=== PATIENT | male | born 1990 | race Caucasian/White ===

== ENCOUNTER 2018-06-01 12:09 | Emergency (ER) | payer OTHER ==
[~2018-06-01 12:09] MED LIST: ONDA4TAB97 PO; OXYC-865 PO
--- NOTE | 2018-06-01 12:13 | ER Report ---
History and Physical Time Seen By MD: 12:13 HPI/ROS CHIEF COMPLAINT: Left shoulder pain HISTORY OF PRESENT ILLNESS: 27-year-old male patient presents to emergency room with complaint of left shoulder pain. The patient states that he was skiing today. He states that he put his ski pole down into this now and it stuck. He continued on and had a jarring motion on the left arm. Patient states he has had significant pain since then. He denies any numbness or tingling in the hand. Patient states that he has had a history of shoulder problems with that shoulder. 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 He states that it will pop out and often times will pop back in. He states he is not able to get to pop back in today. Patient states he has not taken any medication for this. REVIEW OF SYSTEMS: Respiratory: No cough, no dyspnea. Cardiovascular: No chest pain, no palpitations. Gastrointestinal: No vomiting, no abdominal pain. Musculoskeletal: As noted above Allergies: Coded Allergies: No Known Drug Allergies (Unverified , 06/01/18) Home Meds Active Scripts Hydrocodone Bit/Acetaminophen (HYDROCODON-ACETAMINOPHEN 5-325) 1 Each Tablet, 1 EACH PO Q4-6H PRN for PAIN, #8 TAB Prov:SHANNENYENI ELECTROLYSIS NEEDLE OPERATOR 06/01/18 Discontinued Scripts Ondansetron Hcl (ZOFRAN) 4 Mg Tablet, 4 MG PO Q6H PRN for NAUSEA/VOMITING, #10 Prov:MARK ANTHONY MORALES DO 12/25/16 Oxycodone Hcl/Acetaminophen (PERCOCET 5-325 MG TABLET) 1 Each Tablet, 1 EACH PO Q4-6H PRN for PAIN, #12 Prov:MARK ANTHONY MORALSE DO 12/25/16 Past Medical/Surgical History Patient has a a past medical history of finger fracture, tailbone fracture. Patient has surgical history wisdom teeth removed. Reviewed Nurses Notes: Yes Constitutional Vital Sign - Last 24 Hours 06/01/18 06/01/18 06/01/18 06/01/18 12:18 12:30 13:00 13:10 Temp 98.5 Pulse 75 77 76 Resp 22 45 13 B/P (MAP) 128/112 118/84 (95) 133/62 (85) 118/74 (89) Pulse Ox 99 100 99 O2 Delivery Room Air 06/01/18 06/01/18 06/01/18 3/17/19 13:15 13:17 13:20 13:25 B/P (MAP) 64/50 (55) 111/61 (78) 104/71 (82) 109/64 (79) 06/01/18 06/01/18 06/01/18 06/01/18 13:30 13:35 13:40 13:45 Pulse 63 Resp 7 B/P (MAP) 112/73 (86) 109/55 (73) 107/62 (77) 113/62 (79) Pulse Ox 85 06/01/18 06/01/18 06/01/18 06/01/18 13:50 13:55 14:00 14:05 Pulse 73 Resp 10 B/P (MAP) 109/67 (81) 94/63 (73) 104/60 (75) 103/61 (75) Pulse Ox 97 06/01/18 06/01/18 14:10 14:15 B/P (MAP) 116/63 (80) 107/64 (78) Physical Exam General Appearance: The patient is alert, has no immediate need for airway protection and no current signs of toxicity. Respiratory: Chest is non tender, lungs are clear to auscultation. Cardiac: regular rate and rhythm Gastrointestinal: Abdomen is soft and non tender, no masses, bowel sounds normal. Musculoskeletal: Neck: Neck is supple and non tender. Extremities have full range of motion and are non tender. Patient has deformity of the left shoulder, does appear to be dislocated anteriorly. Skin: No rashes or lesions. DIFFERENTIAL DIAGNOSIS: After history and physical exam differential diagnosis w as considered for dislocation, fracture, contusion, sprain. Medical Decision Making EKG/Imaging Imaging INDICATION: Postreduction imaging. DATE: 06/01/2018 1:22 PM TECHNIQUE: SHOULDER MIN 2 VIEWS LEFT COMPARISON: None FINDINGS: The humeral head articulates normally with the glenoid. The coraco- and acromioclavicular distances are normal. No evidence of fracture or dislocation. IMPRESSION: Successful reduction. Report Dictated By: Queenie Jackson MD at 06/01/2018 1:38 PM Report E-Signed By: Queenie Jackson MD at 06/01/2018 1:38 PM SHOULDER MIN 2 VIEWS LEFT Indication: Left shoulder pain after skiing accident. Comparison: 01/15/2017. Findings: Three views of the left shoulder. There is anterior dislocation of the humeral head. No discrete fractures. The AC joint is intact. No bony lesions or periosteal abnormality. Soft tissues are unremarkable. IMPRESSION: 1. Anterior dislocation of the left humeral head. No discrete fracture. Report Dictated By: Josh Yanez at 06/01/2018 1:08 PM Report E-Signed By: Josh Yanez at 06/01/2018 1:15 PM ED Course/Re-evaluation ED Course Patient was admitted to an exam room, history and physical were obtained. D ifferential diagnoses were considered. On examination lungs are clear, heart is regular, abdomen was soft and nontender. Patient had significant discomfort to the left shoulder and did appear to be dislocated. An x-ray was done of the left shoulder which showed an anterior dislocation. An IV was started, patient received 1 L of normal saline. Patient was also given a dose of morphine, Zofran. Conscious sedation was done as described below. Patient had successful reduction of the left shoulder as described below. Patient was placed in a sling. The patient was adequately awake, not having any difficulties with breathing. He was discharged home. Patient was given him supply of pain medication. Patient was given information to follow-up with primary [place] [facility], Dr. Jacobs. Patient verbalized understanding and agreement with plan. Procedure: Procedural sedation. A pre-sedation evaluation was completed on the patient at 1315. Patient is an appropriate candidate for procedural sedation. The risks of the sedation were discussed with the patient. A time out was completed. The patient was reevaluated immediately prior to initiation of sedation. The patient was sedated with 200 mg of propofol. The patient was monitored with continuous pulse oximetry and engine monitor. There were no complications and no significant hypoxemia. I remained at the bedside for the sedation. The total time I spent in the procedural sedation was 10 minutes. Post sedation evaluation: Patient was alert and cooperative, hemodynamically stable with appropriate respiratory status, temperature and pain control without ongoing nausea and vomiting. Sedation was performed by Dr. Leblanc. Procedure: Dislocation reduction. The shoulder was reduced in the usual fashion without complications. Post reduction the patient's neurovascular exam is normal. Post reduction x-ray demonstrates reduction of the joint to the anatomic position. The procedure was performed by myself. Decision to Disposition Date: Jun 01, 2018 Decision to Disposition Time: 14:11 Depart Departure Latest Vital Signs Vital Signs Date Time Temp Pulse Resp B/P (MAP) Pulse Ox O2 Delivery O2 Flow Rate FiO2 06/01/18 14:15 107/64 (78) 06/01/18 14:00 73 10 97 06/01/18 12:18 98.5 Room Air Impression: Primary Impression: Dislocation of left shoulder joint Condition: Improved Disposition: HOME OR SELF-CARE Referrals: SANCHEZ GRIMES DO (PCP) MAURICE JACOBS MD New Scripts Hydrocodone Bit/Acetaminophen (HYDROCODON-ACETAMINOPHEN 5-325) 1 Each Tablet 1 EACH PO Q4-6H PRN for PAIN, #8 TAB Prov: YENI PRIDE 06/01/18 Patient Instructions: Shoulder Dislocation (ED) Additional Instructions: Limit activity by pain. Ice the shoulder 2-3 times a day for 20-30 minutes. Follow up with [facility], call tomorrow to make an appointment. Return to the ER with uncontrollable pain or numbness to the hand. You may take Ibuprofen as needed for pain in addition to the pain medication. Don't take any additional Tylenol while on the pain medication. Wear the sling 23 out of 24 hours a day until you're seen by orthopedics. You may take the sling off to change close and to shower. Problem Qualifiers Primary Impression: Dislocation of left shoulder joint Encounter type: initial encounter Qualified Codes: S43.005A - Unspecified dislocation of left shoulder joint, initial encounter YENI PRIDE Jun 01, 2018 12:13
[2018-06-01] MEDS ORDERED: ONDANSETRON 4 MG/2 ML VIAL IVP ONE (12:20)
[2018-06-01] MEDS ORDERED: PROPOFOL EMUL 10MG/ML 20 ML VL IVP ONE (12:20)
[2018-06-01] MEDS ORDERED: MORPHINE 4 MG/ML SDV IVP ONE (12:20)
[2018-06-01] MEDS ORDERED: NS(*) 0.9% 1000 ML BAG 1,000 ML IV ONE (12:20)
--- NOTE | 2018-06-01 13:19 | RADIOLOGY IMAGING REPORT ---
FACILITY: [facility] PATIENT NAME: Jero Shearer : 1990 MR: [id number] V: [id number] EXAM DATE: ORDERING PHYSICIAN: YENI PRIDE TECHNOLOGIST: Location: [facility] [place] Patient: Jero Shearer : 1990 Visit/Account:[id number] Date of Sevice: 06/01/2018 SHOULDER MIN 2 VIEWS LEFT Indication: Left shoulder pain after skiing accident. Comparison: 01/15/2017. Findings: Three views of the left shoulder. There is anterior dislocation of the humeral head. No discrete fr actures. The AC joint is intact. No bony lesions or periosteal abnormality. Soft tissues are unrem arkable. IMPRESSION: 1. Anterior dislocation of the left humeral head. No discrete fracture. Report Dictated By: Josh Yanez at 06/01/2018 1:08 PM Report E-Signed By: Josh Yanez at 06/01/2018 1:15 PM [id number]
--- NOTE | 2018-06-01 13:42 | RADIOLOGY IMAGING REPORT ---
[place] [facility] [place] NAME: Jero Shearer : 1990 MR: [id number] V: [id number] EXAM DATE: ORDERING PHYSICIAN: YENI PRIDE TECHNOLOGIST: Location: [facility] Patient: Jero Shearer : 1990 Visit/Account:[id number] Date of Sevice: 06/01/2018 INDICATION: Postreduction imaging. DATE: 06/01/2018 1:22 PM TECHNIQUE: SHOULDER MIN 2 VIEWS LEFT COMPARISON: None FINDINGS: The humeral head articulates normally with the glenoid. The coraco- and acromioclavicular distances are normal. No evidence of fracture or dislocation. IMPRESSION: Successful reduction. Report Dictated By: Queenie Jackson MD at 06/01/2018 1:38 PM Report E-Signed By: Queenie Jackson MD at 06/01/2018 1:38 PM WSN:[id number]
[2018-06-01] MEDS ORDERED: HYDR-385 PO (14:10)
[2018-06-01 14:15] VITALS: BP 107/64
== END 2018-06-01 14:32 | disposition home or self-care (01) ==
LOC: ER 12:26
DX: S43.005A Unspecified dislocation of left shoulder joint, initial encounter (principal)
CPT/HCPCS: 23650; 73030; 96361; 96374; 96375; 99156; 99285; A4565; J2270; J2405; J2704; J7030